=== PATIENT | female | born 1965 | race Caucasian/White ===

== ENCOUNTER 2018-07-25 16:11 | Observation (INO) | payer BC ==
[~2018-07-25] VITALS: Ht 162.6 cm; Wt 70.0 kg
[~2018-07-25 16:11] MED LIST: PROAIR HFA IN; ZITHROMAX250 MG PO
[2018-07-25 17:51] LABS: HEMATOCRIT 40.7 % (37.0-47.0); IMMATURE GRANULOCYTES 0.3 % (0.0-5.0); MEAN CORPUSCULAR HGB 32.3 pG CALC (26.0-32.0); MEAN CORPUSCULAR HGB CONC 34.4 g/L CALC (32.0-36.0); NEUT# 4.28 thou/uL (2.00-7.15); RED BLOOD COUNT 4.33 mill/uL (4.20-5.60); RED CELL DISTRI WIDTH 13.2 % (11.5-15.5)
[2018-07-25 18:33] LABS: ALBUMIN 3.8 g/dL (3.2-5.0); ALKALINE PHOSPHATASE 107 u/l (38-126); ANION GAP 12 (6-22 (CALC)); BILIRUBIN, TOTAL 0.5 mg/dL (0.0-1.4); BUN 11 mg/dL (7-17); BUN/CREATININE RATIO 15 (12-20 (CALC)); CARBON DIOXIDE 29 mmol/l (22-30); CHLORIDE 101 mmol/l (95-108); CREATININE 0.7 mg/dL (0.5-1.0); GFR > 60 ML/MIN (>=60 (CALC)); GFR FOR AFR.AMER. > 60 ML/MIN (>=60 (CALC)); MAGNESIUM 1.9 mg/dL (1.6-2.3); POTASSIUM 3.2 mmol/l (3.5-5.1); SGOT/AST 23 u/l (14-36); SODIUM 138 mmol/l (137-146); TOTAL PROTEIN 6.2 g/dL (6.3-8.2)
[2018-07-25 22:30] VITALS: BP 101/61
[2018-07-25 22:58] LABS: URINE BILIRUBIN - DIPSTICK NEGATIVE (NEGATIVE); URINE BLOOD DIPSTICK NEGATIVE (NEGATIVE); URINE COLOR YELLOW; URINE GLUCOSE - DIPSTICK NEGATIVE (NEGATIVE); URINE KETONE NEGATIVE (NEGATIVE); URINE LEUK ESTERASE NEGATIVE (NEGATIVE); URINE NITRITE - DIPSTICK NEGATIVE (Negative); URINE PH 6.5 (4.5-8.0); URINE PROTEIN - DIPSTICK NEGATIVE (NEG-TRACE); URINE SPECIFIC GRAVITY <=1.005; URINE UROBILINOGEN - DIPSTICK 0.2 E.U./dL (0.2)
[2018-07-26] VITALS (7 sets, daily range): BP systolic 92–110; BP diastolic 52–64
[2018-07-26 05:39] LABS: HEMATOCRIT 38.2 % (37.0-47.0); MEAN CELL VOLUME 94.3 fL CALC (80.0-100.0); MEAN CORPUSCULAR HGB 32.1 pG CALC (26.0-32.0); RED BLOOD COUNT 4.05 mill/uL (4.20-5.60); RED CELL DISTRI WIDTH 13.4 % (11.5-15.5)
[2018-07-26 05:52] LABS: ANION GAP 11 (6-22 (CALC)); BUN 9 mg/dL (7-17); BUN/CREATININE RATIO 15 (12-20 (CALC)); CARBON DIOXIDE 27 mmol/l (22-30); CHLORIDE 107 mmol/l (95-108); CREATININE 0.6 mg/dL (0.5-1.0); GFR > 60 ML/MIN (>=60 (CALC)); GFR FOR AFR.AMER. > 60 ML/MIN (>=60 (CALC)); MAGNESIUM 1.9 mg/dL (1.6-2.3); POTASSIUM 3.8 mmol/l (3.5-5.1); SODIUM 141 mmol/l (137-146)
[2018-07-27 04:00] VITALS: BP 90/48
[2018-07-27 05:14] LABS: HEMATOCRIT 35.3 % (37.0-47.0); HEMOGLOBIN 12.1 g/dl (12.0-16.0); IMMATURE GRANULOCYTES 0.5 % (0.0-5.0); MEAN CELL VOLUME 94.9 fL CALC (80.0-100.0); MEAN CORPUSCULAR HGB 32.5 pG CALC (26.0-32.0); MEAN CORPUSCULAR HGB CONC 34.3 g/L CALC (32.0-36.0); NEUT# 7.11 thou/uL (2.00-7.15); RED BLOOD COUNT 3.72 mill/uL (4.20-5.60); RED CELL DISTRI WIDTH 13.7 % (11.5-15.5)
[2018-07-27 05:35] LABS: ALBUMIN 2.8 g/dL (3.2-5.0); ALKALINE PHOSPHATASE 78 u/l (38-126); AMYLASE 32 u/l (30-110); ANION GAP 10 (6-22 (CALC)); BUN 10 mg/dL (7-17); BUN/CREATININE RATIO 16 (12-20 (CALC)); CARBON DIOXIDE 26 mmol/l (22-30); CHLORIDE 110 mmol/l (95-108); CREATININE 0.6 mg/dL (0.5-1.0); GFR > 60 ML/MIN (>=60 (CALC)); GFR FOR AFR.AMER. > 60 ML/MIN (>=60 (CALC)); LIPASE 59 u/l (23-300); POTASSIUM 3.8 mmol/l (3.5-5.1); SGOT/AST 18 u/l (14-36); SODIUM 142 mmol/l (137-146); TOTAL PROTEIN 4.7 g/dL (6.3-8.2)
[2018-07-27 06:09] VITALS: BP 100/62
[2018-07-27 08:15] VITALS: BP 92/39
[2018-07-27 15:32] VITALS: BP 90/46
[2018-07-27 19:07] VITALS: BP 100/62
[2018-07-28 04:00] VITALS: BP 91/54
[2018-07-28 06:02] LABS: ALBUMIN 2.9 g/dL (3.2-5.0); ALKALINE PHOSPHATASE 83 u/l (38-126); ANION GAP 10 (6-22 (CALC)); BILIRUBIN, TOTAL 0.1 mg/dL (0.0-1.4); BUN 11 mg/dL (7-17); BUN/CREATININE RATIO 18 (12-20 (CALC)); CARBON DIOXIDE 28 mmol/l (22-30); CHLORIDE 108 mmol/l (95-108); CREATININE 0.6 mg/dL (0.5-1.0); GFR > 60 ML/MIN (>=60 (CALC)); GFR FOR AFR.AMER. > 60 ML/MIN (>=60 (CALC)); POTASSIUM 3.9 mmol/l (3.5-5.1); SGOT/AST 27 u/l (14-36); SODIUM 141 mmol/l (137-146)
[2018-07-28 06:03] LABS: HEMATOCRIT 36.1 % (37.0-47.0); HEMOGLOBIN 12.3 g/dl (12.0-16.0); IMMATURE GRANULOCYTES 0.6 % (0.0-5.0); MEAN CELL VOLUME 95.8 fL CALC (80.0-100.0); MEAN CORPUSCULAR HGB 32.6 pG CALC (26.0-32.0); MEAN CORPUSCULAR HGB CONC 34.1 g/L CALC (32.0-36.0); NEUT# 8.36 thou/uL (2.00-7.15); RED BLOOD COUNT 3.77 mill/uL (4.20-5.60); RED CELL DISTRI WIDTH 14.2 % (11.5-15.5)
[2018-07-28 07:27] VITALS: BP 91/40
[2018-07-28] MEDS ORDERED: MEDDOSEPAK PO (15:48)
[2018-07-28] MEDS ORDERED: DOXYCYCL HYC100 MG PO (15:49)
[2018-07-28] MEDS ORDERED: COMBIVENT RESPIMAT IN (15:52)
== END 2018-07-28 16:35 | disposition home or self-care (01) | DRG 194 ==
LOC: ED 16:11 → ED-I 21:00 → ED 21:13 → MS2 21:14
PROVIDERS: Emergency Medicine; Internal Medicine Nephrology; ADMIT Internal Medicine; ATTEND Internal Medicine
DX: J18.9 Pneumonia, unspecified organism (principal); J44.0 Chronic obstructive pulmonary disease with (acute) lower respiratory infection; J44.1 Chronic obstructive pulmonary disease with (acute) exacerbation; I95.9 Hypotension, unspecified; R73.9 Hyperglycemia, unspecified; F17.210 Nicotine dependence, cigarettes, uncomplicated
CPT/HCPCS: G0378

== ENCOUNTER 2019-07-26 18:29 | Inpatient (IN) | payer BC ==
[~2019-07-26] VITALS: Ht 162.6 cm; Wt 72.6 kg
[~2019-07-26 18:29] MED LIST changes: +COMBIVENT RESPIMAT IN; +DOXYCYCL HYC100 MG PO; +MEDDOSEPAK PO
--- NOTE | 2019-07-26 18:35 | NUR ---
PT TO ROOM VIA WHEELCHAIR, NOTIFIED OF PT STATUS.
--- NOTE | 2019-07-26 19:05 | NUR ---
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
--- NOTE | 2019-07-26 19:05 | NUR ---
PT USED FRIEND'S MDI FOR HER S/S AT HOME USES NO HOME MEDS
--- NOTE | 2019-07-26 19:25 | NUR ---
MOVED FROM ROOM 16 TO 14 FOR CLOSER OBSERVATION
[2019-07-26 19:54] LABS: IMMATURE GRANULOCYTES 0.4 % (0.0-5.0); MEAN CELL VOLUME 91.2 fL CALC (80.0-100.0); MEAN CORPUSCULAR HGB 31.7 pG CALC (26.0-32.0); MEAN CORPUSCULAR HGB CONC 34.8 g/L CALC (32.0-36.0); NEUT# 8.35 thou/uL (2.00-7.15); RED BLOOD COUNT 4.64 mill/uL (4.20-5.60); RED CELL DISTRI WIDTH 13.2 % (11.5-15.5)
[2019-07-26 19:55] LABS: HEMATOCRIT 42.3 % (37.0-47.0); HEMOGLOBIN 14.7 g/dl (12.0-16.0)
[2019-07-26 20:11] LABS: ANION GAP 14 (6-22 (CALC)); BUN 12 mg/dL (7-17); BUN/CREATININE RATIO 17 (12-20 (CALC)); CARBON DIOXIDE 28 mmol/l (22-30); CHLORIDE 96 mmol/l (95-108); CREATININE 0.7 mg/dL (0.5-1.0); GFR > 60 ML/MIN (>=60 (CALC)); GFR FOR AFR.AMER. > 60 ML/MIN (>=60 (CALC)); POTASSIUM 3.5 mmol/l (3.5-5.1); SGOT/AST 32 u/l (14-36); SODIUM 134 mmol/l (137-146)
[2019-07-26 20:13] LABS: ALBUMIN 3.9 g/dL (3.2-5.0); ALKALINE PHOSPHATASE 129 u/l (38-126); BILIRUBIN, TOTAL 0.7 mg/dL (0.0-1.4); TOTAL PROTEIN 6.8 g/dL (6.3-8.2)
[2019-07-26 20:22] LABS: MYOGLOBIN 69 ng/mL (0 - 62)
--- NOTE | 2019-07-26 20:28 | NUR ---
PT AMB TO RR TO VOID NO DIFF AMB NO SOB,OCC LOOSE ALKA TECHNICAL FELLOW COUGH
[2019-07-26 20:38] LABS: URINE BLOOD DIPSTICK TRACE-INTACT (NEGATIVE); URINE COLOR YELLOW; URINE GLUCOSE - DIPSTICK NEGATIVE (NEGATIVE); URINE KETONE >=80 mg/dL (NEGATIVE); URINE LEUK ESTERASE NEGATIVE (NEGATIVE); URINE NITRITE - DIPSTICK NEGATIVE (Negative); URINE PROTEIN - DIPSTICK TRACE mg/dL (NEG-TRACE)
[2019-07-26 20:40] LABS: URINE BILIRUBIN - DIPSTICK NEGATIVE (NEGATIVE)
--- NOTE | 2019-07-26 21:59 | NUR ---
A/O X3 FEELING BETTER NO COUGH NO SOB DENIES PAIN OF ANY SOURCE.
--- NOTE | 2019-07-26 22:45 | NUR ---
A/OX3 W/P/D SKIN NO SOB NO PAIN.SR WITHOUT ECTOPY
--- NOTE | 2019-07-26 23:20 | NUR ---
PHONE REPORT TO NURSE PANCHO ICU
--- NOTE | 2019-07-26 23:25 | NUR ---
PT TRANSPORTED TO ICU IN STABLE CONDITION
[2019-07-26 23:42] VITALS: BP 86/53
--- NOTE | 2019-07-26 23:42 | NUR ---
54 yr old white female admitted [id number] as medsurg overflow per stretcher from er. transferred self to bed. bed weight obtained. o2 cont per nc. crackles bilat. history obtained per pt & er record. oriented to room. fall precautions initiated.
[2019-07-27 04:00] VITALS: BP 80/45
--- NOTE | 2019-07-27 04:00 | NUR ---
eyes closed. no resp diff. o2 cont.
--- NOTE | 2019-07-27 05:08 | NUR ---
rt @ bedside. ekg obtained & faxed to er.
--- NOTE | 2019-07-27 07:40 | NUR ---
PT SITTING UP IN BED. PT IS ALERT AND ORIENTED X3. SHIFT ASSESSMENT COMPLETED AT THIS TIME. IV PATENT X1. CALL LIGHT IN REACH. WILL CONTINUE TO MONITOR.
[2019-07-27 08:00] VITALS: BP 87/44
--- NOTE | 2019-07-27 09:30 | NUR ---
DR IRIZARRY AT BEDSIDE AT THIS TIME
[2019-07-27 10:00] VITALS: BP 102/58
--- NOTE | 2019-07-27 10:00 | NUR ---
PT RESTING IN BED AWAKE AND ON PHONE. CALL LIGHT IN REACH. WILL CONTINUE TO MONITOR.
--- NOTE | 2019-07-27 11:35 | NUR ---
PT SET UP FOR NOON MEAL
[2019-07-27 12:00] VITALS: BP 99/57
--- NOTE | 2019-07-27 12:23 | NUR ---
PT ASSISTED TO BATHROOM TO VOID THEN ASSISTED BACK TO BED. CALL LIGHT IN REACH. WILL CONTINUE TO MONITOR.
--- NOTE | 2019-07-27 12:29 | NUR ---
PT OFF OF O2 AT THIS TIME. O2 SATS MAINTAINING 92% OR ABOVE
--- NOTE | 2019-07-27 16:00 | NUR ---
PT RESTING IN BED WATCHING TV. RESP ARE EVEN AND UNLABORED. NO DISTRESS NOTED. CALL LIGHT IN REACH. WILL CONTINUE TO MONITOR
--- NOTE | 2019-07-27 17:45 | NUR ---
PT SET UP FOR PM MEAL
--- NOTE | 2019-07-27 19:17 | NUR ---
REPORT RECEIVED FROM ADAN CHIU PT RESTING IN BED WITH LIGHTS OFF AND EYES CLOSED.
[2019-07-27 20:06] VITALS: BP 87/49
--- NOTE | 2019-07-27 20:07 | NUR ---
PT SITTING UP IN BED WATCHING TV; ALERT AND ORIENTED. DENIES PAIN AND SOB. RESPIRATIONS EVEN AND UNLABORED ON ROOM AIR. EXP WHEEZING TO ANTERIOR LEFT UPPER LOBE, OTHERWISE LUNGS ARE CLEAR. PT REPORTS PRODUCTIVE COUGH WITH GREEN SPUTUM. INDEPENDENT TO BATHROOM TO VOID HAFSA CLEAR URINE. PLAN OF CARE REVIEWED. PT ENCOURAGED TO VERBALIZE CONCERNS. STATES UNDERSTANDING. SAFETY MEAURES IN PLACE. CALL LIGHT WITHIN REACH.
--- NOTE | 2019-07-27 21:07 | NUR ---
DECLINED LOVENOX SHE IS AMBULATORY IN ROOM.
--- NOTE | 2019-07-27 21:34 | NUR ---
REPORT GIVEN TO ADAN WEISS. PT TRANSPORTED TO [facility] ROOM 278 VIA WHEELCHAIR WITH ICU STAFF IN STABLE CONDITION.
[2019-07-27 21:40] VITALS: BP 94/58
--- NOTE | 2019-07-27 21:59 | NUR ---
PATIENT TRANSFERRED FROM ICU VIA WHEELCHAIR WITH ICU STAFF IN ATTENDANCE. PATIENT ABLE TO TRANSFER FROM W/C TO BED INDEPENDANTLY. PATIENT IS ALERT AND ORIENTEDX3-NO COMPLAINTS AT THIS TIME. BP REMAINS [id number] FEELING DIZZY OR LIGHTHEADED, AFEBRILE. O2 SAT 93% ON ROOM AIR. PATIENT WITH NO COMPLAINTS AT THIS TIME. LUNGS CLEAR BUT DIMINISHED. LOOSE PRODUCTIE COUGH-GREEN SPUTUM PER PATIENT. DENIES ANY DIFFICULTY WITH URINATION. BM TODAY. ABD SOFT WITH ACTIVE BS. PATIENT ORIENTED TO ROOM AND SURROUNDINGS. INSTRUCTED ON [employer] CALL LIGHT SYSTEM AND TV REMOTE. PROVIDED WITH JELLO AND DRINK. SAFETY PRECAUTIONS REINFORCED. CALL LIGHT IN REACH. WILL CONT TO MONITOR.
--- NOTE | 2019-07-28 00:58 | NUR ---
PATIENT RESTING IN BED-MEDICATED WITH SOLU-MEDROL ORDERED VIA RIGHT AC SITE. PATIENT IS A BIT SHAKEY AND STATES THAT SHE IS HAVING TROUBLE SLEEPING.EDUCATED PATIENT REGUARDING POSSIBLE SIDE EFFECTS OF STEROIDS AND/OR NEB TREATMENTS. VERBALIZES UNDERSTANDING. CALL LIGHT IN REACH, WILL CONT TO MONITOR.
[2019-07-28 04:00] VITALS: BP 84/45
--- NOTE | 2019-07-28 04:45 | NUR ---
PATIENT RESTING IN BED AND APPEARS SLEEPING WITH EYES CLOSED. RESP ARE EVEN AND UNLABORED. CALL LIGHT IN REACH. WILL CONT TO MONITOR.
--- NOTE | 2019-07-28 07:05 | NUR ---
REPORT RECEIVED FROM ADAN WEISS;PT APPEARS TO BE SLEEPING IN SEMI FOWLERS POSITION;NO S/S OF DISTRESS NOTED;RESPIRATIONS EVEN AND UNLABORED ON RA;ALL SAFETY PRECAUTIONS IN PLACE WITH BED IN THE LOWEST POSITION AND CALL LIGHT IN REACH;WILL CONTINUE TO MONITOR
--- NOTE | 2019-07-28 08:30 | NUR ---
PT RESTING IN SEMI FOWLERS POSITION,A&O X3;VS OBTAINED AND ASSESSEMENT COMPLETED;PT DENIES ANY CURRENT PAIN OR DISCOMFORTS,PAIN SCALE AND REPORTING EDUCATED;RESPIRATIONS EVEN AND UNLABORED,SHALLOW ON RA;NON-PRODUCTIVE COUGH NOTED AT TIMES;ABDOMEN SOFT ON PALPATION AND ACTIVE IN ALL 4 QUADRANTS;STRONG PEDAL PULSES;SKIN INTACT;#20G TO RAC FLUSHED AND PATENT,SITE APPEARS HEALTHY;FLU VACCINE ADMINISTERED TO RIGHT ARM,CONSENT OBTAINED PRIOR TO ADMINISTRATION;PT DENIES ANY ADDITIONAL NEEDS AT THIS TIME AND IS ENCOURAGED TO CALL FOR ASSISTANCE IF NEEDED;CALL LIGHT IN REACH;WILL CONTINUE TO MONITOR
[2019-07-28 08:34] VITALS: BP 96/50
--- NOTE | 2019-07-28 11:25 | NUR ---
PT RESTING IN SEMI FOWLERS POSITION WATCHING TV;RESPIRATIONS EVEN AND UNLABORED ON RA;PT DENIES ANY CURRENT PAIN OR NEEDS;IV ABX INFUSING WITH EASE PER ORDER;PT DENIES ANY ADDITIONAL NEEDS AT THIS TIME;ENCOURAGED TO CALL FOR ASSISTANCE IF NEEDED;CALL LIGHT IN REACH;WILL CONTINUE TO MONITOR
--- NOTE | 2019-07-28 15:30 | NUR ---
PT RESTING IN SEMI FOWLERS POSITION WATCHING TV;RESPIRATIONS EVEN AND UNLABORED ON RA;PT DENIES ANY CURRENT PAIN OR NEEDS;NON-PRODUCTIVE COUGH NOTED;PT MEDICATED WITH PRN ROBITUSSIN AC PER REQUEST;IV SITE PATENT;FRESH WATER PROVIDED;PT ENCOURAGED TO CALL FOR ASSISTANCE IF NEEDED;CALL LIGHT IN REACH;WILL CONTINUE TO MONITOR
[2019-07-28 16:10] VITALS: BP 105/62
[2019-07-28 19:00] VITALS: BP 92/54
--- NOTE | 2019-07-28 19:30 | NUR ---
REPORT RECEIVED FROM DAY NURSE. PT RESTING IN BED SUPINE; ALERT AND ORIENTED. DENIES PAIN. RESPIRATIONS EVEN AND UNLABORED ON ROOM AIR. LUNGS ARE CLEAR. PLAN OF CARE REVIEWED PT ENCOURAGED TO VERBALIZE CONCERNS. STATES UNDERSTANDING. SAFETY MEASURES IN PLACE. CALL LIGHT WITHIN REACH.
--- NOTE | 2019-07-29 00:29 | NUR ---
PT ASLEEP WITH NO SIGNS OF DISTRESS. RESPIRATIONS EVEN AND UNLABORED ON ROOM AIR. ROBITUSSIN GIVEN WITH SOLUMEDROL AT HS. SAFETY MEASURES IN PLACE. CALL LIGHT WITHIN REACH.
[2019-07-29 04:00] VITALS: BP 91/61
--- NOTE | 2019-07-29 04:00 | NUR ---
NO ACUTE CHANGES IN CONDITION. SAFETY MEASURES IN PLACE. CALL LIGHT WITHIN REACH.
--- NOTE | 2019-07-29 05:40 | NUR ---
RT AT BEDSIDE FOR BREATHING TREATMENT.
--- NOTE | 2019-07-29 05:47 | NUR ---
PRODUCTIVE COUGH WITH BLOODY SPUTUM.
[2019-07-29 08:15] VITALS: BP 96/40
--- NOTE | 2019-07-29 08:15 | NUR ---
ASSESSMENT IS COMPLETED: IV SITE IS FREE FROM REDNESS OR EDEMA. HR IS REG,PULSES ARE STRONG X4, ABD IS SOFT WITH ACTIV EBS. BREATH SOUNDS ARE CLEAR, BILATERALLY. C/O HAVING BLOODY SPUTUM AND SOME BLOOD FROM HER NOSE. CONTINUE TO OSBERVE AND MONITOR.
--- NOTE | 2019-07-29 12:45 | NUR ---
PT IS RELAXING IN BED WITH NO DISTRESS NOTED. IV SITE IS FREE FROMR EDNESS ORE DMA
[2019-07-29 15:32] VITALS: BP 103/50
--- NOTE | 2019-07-29 16:45 | NUR ---
PT ISRELAXING IN BED WITH MO DISTRESS NTOED. IV SITE IS FREE FROMRE DNESS ORE CHAVEZ. MS BEING TRANSPORTED TO HAVE AN CT OF THE THORAX.
--- NOTE | 2019-07-29 17:25 | NUR ---
22 IN LAC FROM XRAY. RETURNED FROM XRAY VIA
[2019-07-29] MEDS ORDERED: LEVAQUIN750 MG PO (18:13)
[2019-07-29] MEDS ORDERED: PREDNISONE10 MG PO (18:14)
--- NOTE | 2019-07-29 18:20 | NUR ---
DR IRIZARRY CALLING AND ASKING ABOUT CT OF THE [facility]ORAX RESULTS SO HE CAN DISCHARGE PT.
[2019-07-29 19:35] VITALS: BP 101/66
--- NOTE | 2019-07-29 19:39 | NUR ---
SPOKE WITH PT RE: INFORMATION ON THE CT OF THE THORAX, AND IF SHE WANTS TO GO HOME PT WISHES TO STAY TONIGHT DUE TO HAVING TO DRIVE HERSELF HOME AND SHE IS TIRED,. INFORMED RE: THE DECISION.
--- NOTE | 2019-07-29 20:00 | NUR ---
CHANGE OF SHIFT REPORT RECEIVED FROM SANJU STACY. PATIENT SITTING UP IN BED. PATIENT IS ABLE TO MAKE HER NEEDS KNOWN
--- NOTE | 2019-07-30 | NUR ---
PATIENT RESTING COMFORTABLY. SPUTUM SPECIMEN COLLECTED AND SENT TO LAB ON 07/29/2019 AT 2145PM. PATIENT DENIES ANY NEED. PT EDUCATED ON USE OF INCENTIVE SPIROMETER. SOURCING INTERNSHIP WILL CONTINUE TO MONITOR.
[2019-07-30 04:00] VITALS: BP 98/57
--- NOTE | 2019-07-30 04:00 | NUR ---
PATIENT STABLE ABLE TO MAKE NEEDS KNOWN. NO S/S OF PAIN OR DISCOMFORT. ACCOUNT SUPERVISOR WILL COMTINUE TO MONITOR.
[2019-07-30 08:00] VITALS: BP 113/57
--- NOTE | 2019-07-30 08:00 | NUR ---
ASSESSMENT IS COMPELTED; IV SITE IS FREE FROM REDNESS OR EDEMA. HR IS REG,PULSES ARE STRONG X4, ABD IS SOFT WITH ACTIVE BS. BREATH SOUNS ARE CLEAR AND DIMINISHED. CONTINEU TO OSEBRVE AND MONITOR.
--- NOTE | 2019-07-30 13:00 | NUR ---
PT'S IV SITE DISCONTINEUD CATHETER INTACT. NO REDNESS OR EDEMA. DISCHARGE INSTRUCTIONS GIVEN AND VERBALIZED UNDERSTANDING.
--- NOTE | 2019-07-30 13:32 | NUR ---
Discharge instructions given. Patient verbalizes understanding of same. Discharged in stable condition via Wheelchair to Home with family. All belongings sent with pt.PT IS DRIVING HERSELF HOME. TAKEN TO HER CAR IN THE ER PARKING LOT.
== END 2019-07-30 13:04 | disposition home or self-care (01) | DRG 193 ==
LOC: ED 18:29 → ED-I 19:15 → ED 20:40 → ICU 20:41 → MS2 07-27 21:30
PROVIDERS: ADMIT Internal Medicine; ATTEND Internal Medicine
PROC: 3E02340 Introduction of Influenza Vaccine into Muscle, Percutaneous Approach (ICD-10-PCS; principal; 2019-07-28)
PROC: 3E0234Z Introduction of Serum, Toxoid and Vaccine into Muscle, Percutaneous Approach (ICD-10-PCS; 2019-07-28)
DX: J18.9 Pneumonia, unspecified organism (principal); J96.01 Acute respiratory failure with hypoxia; J44.1 Chronic obstructive pulmonary disease with (acute) exacerbation; R04.2 Hemoptysis; J44.0 Chronic obstructive pulmonary disease with (acute) lower respiratory infection; R73.9 Hyperglycemia, unspecified; F17.210 Nicotine dependence, cigarettes, uncomplicated; Z23 Encounter for immunization
CPT/HCPCS: J1650; Q9967

== ENCOUNTER 2021-04-09 07:39 | Day surgery (SDC) | payer OTHER ==
[~2021-04-09 07:39] MED LIST changes: +IRON325 M1 PO; +LEVAQUIN750 MG PO; +MULTI VIT PO; +PREDNISONE10 MG PO; +VENTOLIN HFA108 MCG IN
[2021-04-09 09:51] VITALS: BP 113/65
== END 2021-04-09 10:10 | disposition home or self-care (01) | DRG 812 ==
LOC: ENDO 07:39 → ORM 11:15
PROVIDERS: ATTEND Surgery
PROC: 0DBP8ZX Excision of Rectum, Via Natural or Artificial Opening Endoscopic, Diagnostic (ICD-10-PCS; principal; 2021-04-09)
PROC: 0DBN8ZX Excision of Sigmoid Colon, Via Natural or Artificial Opening Endoscopic, Diagnostic (ICD-10-PCS; 2021-04-09)
PROC: 0DB78ZX Excision of Stomach, Pylorus, Via Natural or Artificial Opening Endoscopic, Diagnostic (ICD-10-PCS; 2021-04-09)
DX: D64.9 Anemia, unspecified (principal); K63.89 Other specified diseases of intestine; D12.5 Benign neoplasm of sigmoid colon; K62.1 Rectal polyp; K57.30 Diverticulosis of large intestine without perforation or abscess without bleeding; K29.70 Gastritis, unspecified, without bleeding; K44.9 Diaphragmatic hernia without obstruction or gangrene; K21.9 Gastro-esophageal reflux disease without esophagitis; Z80.0 Family history of malignant neoplasm of digestive organs; Z86.010 Personal history of colon polyps